=== PATIENT | female | born 1965 | race Caucasian/White ===

== ENCOUNTER → 2016-12-27 | Outpatient (CLI) | payer MEDICARE, OTHER ==
[2015-06-21 10:53] VITALS: BP 146/77
--- NOTE | 2016-12-28 13:54 | PDOC4 ---
PROCEDURE Procedure Polysomnography report Referring physician Dr. Miquel Wade Date of study 12/27/2016 Radha is 51 years old who weighs 293 pounds with a BMI of 30. patient's Loving[place] score was 10. Patient underwent sleep study at [facility] to rule out LETICIA. During the night's study patient spent 419 minutes in bed and slept for 378 minutes with a sleep efficiency of 90%. Sleep latency was 33 minutes with a REM latency of 225 minutes. Overall sleep architecture showed normal stage I sleep, reduced stage II sleep, increased slow-wave sleep which was 61% of the total sleep time and reduced REM sleep. During the night of the study patient had 1 obstructive apnea, no mixed apneas and no central apneas. 28 hypopneas were seen. Patients AHI for the entire night was 5 per hour with a supine AHI of 4 per hour and a REM AHI of 31 per hour. EKG monitoring revealed normal sinus rhythm. Average heart rate was 77 bpm .no arrhythmias were observed. Review of nocturnal oximetry study revealed a mean oxygen saturation of 95% with a lowest of 75%. 7.7% of time oxygen saturation remained less than 89%. This was predominantly seen during REM sleep. No. Periodic limb movements were seen. Impression 1. Mild sleep apnea apnea syndrome with worsening during REM sleep. Total AHI 5 per hour with a REM AHI of 31 per hour. 2. Nocturnal hypoxia which was predominantly seen during REM sleep and related to REM sleep related obstructive sleep apnea 2. No clinically significant periodic limb movements seen. Recommendation 1. Patient has mild sleep apnea which can be treated with multiple options. Oral appliance can be used as recommended by the dentist. Alternate treatment options would include trial of CPAP. 2. If patient undergoes CPAP titration study than she should be followed up in 4 -6 weeks to assess compliance with CPAP and to document clinical improvement. 3. If patient does not undergo CPAP titration study then she would qualify for use of nocturnal oxygen at 1 L. 4. Avoid central nervous system depressants 5. Cautioned regarding driving until patient's sleep apnea is resolved with above recommendations JOSE DE JESUS GALVAN MD Dec 28, 2016 13:54
== END | disposition home or self-care (01) ==
LOC: SLPLAB 20:19
PROVIDERS: ATTEND Physician Assistant Medical
DX: G47.33 Obstructive sleep apnea (adult) (pediatric) (principal)
CPT/HCPCS: 95810

== ENCOUNTER → 2017-07-22 | Outpatient (CLI) | payer MEDICARE, OTHER | END | disposition home or self-care (01) | LOC: KCIC MRI 10:01 | DX: G54.0 Brachial plexus disorders (principal); M41.83 Other forms of scoliosis, cervicothoracic region | CPT/HCPCS: 71550 ==

== ENCOUNTER → 2017-09-09 | Outpatient (CLI) | payer MEDICARE, OTHER ==
[~2017-09-09] MED LIST: GADOBUTROL 7.5 MMOL/7.5 ML VIAL IV
== END | disposition home or self-care (01) ==
LOC: KCIC MRI 11:50
DX: R51 Headache (principal)
CPT/HCPCS: 70551

== ENCOUNTER → 2018-08-01 | Outpatient (CLI) | payer MEDICARE, OTHER ==
[2015-06-21 10:53] VITALS: BP 146/77
[~2018-08-01] MED LIST changes: +ALBU2.5V8 INH; -GADOBUTROL 7.5 MMOL/7.5 ML VIAL IV; +PRED2.5T PO
--- NOTE | 2018-08-01 12:23 | KCIC ---
EXAM: Lumbar spine, 5 views. HISTORY: Pain. COMPARISON: None. FINDINGS: 5 views of the lumbar spine are obtained. There is partial visualization of a fixation james at the thoracic levels. There is associated thoracic scoliosis. There is a transitional lumbosacral segment. This is considered a partially lumbarized S1 segment for this dictation. Based on this numbering system, there is a mild anterior wedge compression fracture of L5. The remainder of the lumbar vertebral bodies are normal in height and the disc spaces are preserved. There is facet arthropathy at the lower lumbar levels. There is bone demineralization, limiting evaluation of bony detail. There are surgical clips within the abdomen. IMPRESSION: 1. Mild L5 compression fracture, of uncertain chronicity. 2. Degenerative changes predominantly at the lumbosacral junction. 3. Thoracic scoliosis with james fixation, partially included on the ngjmo-kz-lugl. 4. Bone demineralization. Electronically signed by: Adri Dunbar MD (08/01/2018 12:20 PM) [email or web address]
--- NOTE | 2018-08-01 12:57 | KCIC ---
EXAM: Bilateral hands and feet, 3 views. HISTORY: Pain. COMPARISON: None. FINDINGS: Bilateral feet: 3 views of both feet are obtained. There is no fracture, dislocation or subluxation. There is mild left hallux valgus. There is a punctate calcification within the medial left foot soft tissues at the level of the first metatarsal phalangeal joint. Bilateral hands: 3 views of both hands are obtained. There is no fracture, dislocation or subluxation. IMPRESSION: 1. No acute osseous finding. 2. Mild left hallux valgus deformity. Electronically signed by: Adri Dunbar MD (08/01/2018 12:54 PM) [id number]
--- NOTE | 2018-08-01 13:37 | KCIC ---
EXAM: Lumbar spine, 5 views. HISTORY: Pain. COMPARISON: None. FINDINGS: 5 views of the lumbar spine are obtained. There is partial visualization of a fixation james at the thoracic levels. There is associated thoracic scoliosis. There is a transitional lumbosacral segment. This is considered a partially lumbarized S1 segment for this dictation. Based on this numbering system, there is a mild anterior wedge compression fracture of L5. The remainder of the lumbar vertebral bodies are normal in height and the disc spaces are preserved. There is facet arthropathy at the lower lumbar levels. There is bone demineralization, limiting evaluation of bony detail. There are surgical clips within the abdomen. IMPRESSION: 1. Mild L5 compression fracture, of uncertain chronicity. 2. Degenerative changes predominantly at the lumbosacral junction. 3. Thoracic scoliosis with james fixation, partially included on the ryopn-zy-dslt. 4. Bone demineralization. Electronically signed by: Adri Dunbar MD (08/01/2018 12:20 PM) [id number] DICTATED and SIGNED BY: ADRI DUNBAR MD DATE: 08/01/18 1217 [facility]
== END | disposition home or self-care (01) ==
LOC: KCIC 11:45
PROVIDERS: ATTEND Physician Assistant Medical
DX: M47.27 Other spondylosis with radiculopathy, lumbosacral region (principal); M80.08XA Age-related osteoporosis with current pathological fracture, vertebra(e), initial encounter for fracture; M20.12 Hallux valgus (acquired), left foot; M41.84 Other forms of scoliosis, thoracic region; M79.642 Pain in left hand; M79.641 Pain in right hand; M79.671 Pain in right foot
CPT/HCPCS: 72100; 72110; 73130; 73630

== ENCOUNTER → 2018-08-24 | Outpatient (CLI) | payer MEDICARE ==
[2015-06-21 10:53] VITALS: BP 146/77
--- NOTE | 2018-08-24 09:43 | CARD ---
MR#: [id number] Date of Study: 08/24/2018 Ordering Physician: JANE LAST, Referring Physician: JANE LAST, Tech: Letitia Miller APPROVED REPORT EXAM: Two-dimensional and M-mode echocardiogram with Doppler and color Doppler. Other Information Quality : GoodHR: 108bpm INDICATION Peripheral Edema 2D DIMENSIONS RVDd2.5 (2.9-3.5cm)Left Atrium(2D)1.8 (1.6-4.0cm) IVSd0.6 (0.7-1.1cm)Aortic Root(2D)2.4 (2.0-3.7cm) LVDd3.1 (3.9-5.9cm)LVOT Diameter1.9 (1.8-2.4cm) PWd0.8 (0.7-1.1cm)LVDs1.7 (2.5-4.0cm) FS (%) 46.4 %SV30.8 ml LVEF(%)79.1 (>50%) Aortic Valve AoV Peak Colby.144.2cm/sAoV VTI18.6cm AO Peak GR.8.3mmHgLVOT Peak Colby.96.6cm/s LVOT VTI 14.32cmAO Mean GR.4mmHg MIKKI (VMAX)1.95gn4SHW (VTI)2.10cm2 Mitral Valve MV E Rolnilgl98.7cm/sMV DECEL YXYE621rg MV A Lownuugh33.6cm/sMV URI95ou E/A Ratio0.7MVA (PHT)4.54cm2 TDI E/Lateral E'6.0E/Medial E'8.2 Pulmonary Valve PV Peak Oggftvxt859.1cm/sPV Peak Grad.5mmHg Pulmonary Vein S1 Iuzkvbvt13.8cm/sD2 Uqnvttbz83.5cm/s PVa [id number] LEFT VENTRICLE The left ventricle is normal size. There is mild concentric left ventricular hypertrophy. The left ve ntricular systolic function is normal and the ejection fraction is within normal range. The Ejection Fraction is >55%. There is normal LV segmental wall motion. Transmitral Doppler flow pattern is Grade I-abnormal relaxation pattern. RIGHT VENTRICLE The right ventricle is normal size. There is normal right ventricular wall thickness. The right ventr icular systolic function is normal. ATRIA The left atrium size is normal. The right atrium size is normal. The interatrial septum is intact wit h no evidence for an atrial septal defect or patent foramen ovale as noted on 2-D or Doppler imaging. AORTIC VALVE The aortic valve is thickened but opens well. Doppler and Color Flow revealed no significant aortic r egurgitation. There is no significant aortic valvular stenosis. MITRAL VALVE The mitral valve is thickened but opens well. There is no evidence of mitral valve prolapse. There is no mitral valve stenosis. Doppler and Color Flow revealed no mitral valve regurgitation noted. TRICUSPID VALVE The tricuspid valve is normal in structure and function. Doppler and Color Flow revealed trace tricus pid regurgitation. There is no tricuspid valve stenosis. PULMONIC VALVE The pulmonic valve is not well visualized. Doppler and Color Flow revealed no pulmonic valvular regur gitation. GREAT VESSELS The aortic root is normal in size. The IVC is normal in size and collapses >50% with inspiration. PERICARDIAL EFFUSION There is no evidence of significant pericardial effusion. Critical Notification Critical Value: No <Conclusion> The left ventricular systolic function is normal and the ejection fraction is within normal range. Th e Ejection Fraction is >55%. There is normal LV segmental wall motion. Signed by : Giacomo Costa, Electronically Approved : 08/24/2018 09:43:05
== END | disposition home or self-care (01) ==
LOC: ECHO 07:41
PROVIDERS: ATTEND Physician Assistant Medical
DX: I51.7 Cardiomegaly (principal); R60.0 Localized edema
CPT/HCPCS: 93306

== ENCOUNTER 2019-01-03 07:25 | Day surgery (SDC) | payer MEDICARE ==
[~2019-01-03] VITALS: Ht 139.7 cm; Wt 35.4 kg
[2019-01-03] MEDS: IV RINGERS,LACTATED 1000ML 1,000 ML IV SCH ×2 (07:00→08:06)
[~2019-01-03 07:25] MED LIST changes: +BUPIVACAINE MPF 0.5% 30 ML VIAL. ONE; +LIDOCAINE 1% 20 ML VIAL. ONE; +ONDANSETRON PF 4 MG/2 ML VIAL. IV PRN; +PROCHLORPERAZINE 10 MG/2 ML VIAL. IV PRN; +fentaNYL PF VIAL 100 MCG/2 ML VIAL IV PRN
[2019-01-03] MEDS ORDERED: ESOM20CA PO (07:55)
[2019-01-03] MEDS ORDERED: SCOPOLAMINE 1.5MG PATCH. TD STA (07:57)
--- NOTE | 2019-01-03 08:48 | DISCH ---
DISCHARGE INSTRUCTIONS Condition on Discharge Condition on Discharge: Stable Activity After Discharge Activity Instructions for Disc: Activity as tolerated Bathing Instructions: Shower-keep dressing dry Lifting Instructions after Dis: No heavy lifting, No pulling or pushing Weight Bearing Status after Di: As tolerated Diet after Discharge Diet after Discharge: Regular Wound Incision Care Wound/Incision Care: Ice to area for comfort, Keep wound/cast CDI, Keep wound elevated, Change dressing Other wound/incision instructi: okay to change dressing after [address] after DC Call your doctor for: Concerns you may have Follow-Up Follow up with: Floridalma in 2 weeks MARIKA SCHREIBER II, MD Jan 03, 2019 08:48
[2019-01-03] MEDS ORDERED: fentaNYL PF VIAL 100 MCG/2 ML VIAL ONE (08:58)
[2019-01-03] MEDS ORDERED: MIDAZOLAM HCL/PF 2 MG/2 ML VIAL. ONE (08:58)
[2019-01-03] MEDS ORDERED: LIDOCAINE 2% PF 5 ML VIAL. ONE ×2 (09:20)
--- NOTE | 2019-01-03 09:47 | PDOC4 ---
Operative Note Operative Note Date of procedure: 01/03/2019 Surgeon: Gene Schreiber Preoperative diagnosis: Left carpal tunnel syndrome Postoperative diagnosis: Same Procedure performed: Open left carpal tunnel release Anesthesia: Fallon block with sedation Findings: Normal-appearing median nerve Blood loss: 2 mL Tourniquet time: 25 minutes Complications: None Reason for procedure: Patient is very pleasant individual has had long-standing carpal tunnel symptoms that have failed conservative therapies. EMG demonstrated the same. Because conservative therapies had failed and the carpal tunnel syndro me was interfering with activities of daily living, we discussed the risks, benefits, alternatives to the above procedure and they wished to proceed. Description of procedure: Patient was greeted in the preoperative area where the patient underwent successful placement of a Fallon block and sedation. The right upper extremity was then prepped and draped in our usual sterile fashion we conducted our standard preoperative timeout. After this, I made a skin incision from the distal wrist crease into the palm over the transverse carpal ligament and incised skin with a scalpel, dissected subcutaneous tissue until I encountered the palmar fascia with a mosquito clamp. Hemostasis was achieved with bipolar cautery. The palmar fascia was incised in line with the skin incision and the self-retaining retractor was then positioned. I then identified the transverse carpal ligament and transected this with the scalpel. I then placed a Ragnell retractor at the distal portion of the incision, spread above and below small remaining portion of the transverse carpal ligament with a tenotomy and then released the remainder of the ligament distally with the tenotomy scissors. I then repeated this maneuver at the proximal portion of the incision and an ulnar directed fashion to release E distal and antebrachial fascia. I then palpated along the median nerve with the tip of the tenotomies to help ensure that accomplished a complete release. The wound was then thoroughly irrigated out with sterile fluid. Skin was then closed with simple interrupted 2-0 nylon. A soft bulky sterile dressing was applied. All counts correct 2 prior to wound closure. Surgery was well tolerated by the patient. The tourniquet was let down and the patient was transferred gently supine to the recovery room cart and taken to PACU in a stable and extubated condition. Postoperative plan is to encourage elevation of the hand and active range of motion at fingers and wrist. I will see the patient back in 2 weeks, sooner should a problem arise. GENE SCHREIBER II, MD Jan 03, 2019 09:47
[2019-01-03] MEDS ORDERED: PROPOFOL 20 ML IV ONE (09:56)
[2019-01-03] MEDS ORDERED: HYDR-3164 PO (09:57)
[2019-01-03] MEDS ORDERED: DOCU-109 PO (09:58)
[2019-01-03] MEDS ORDERED: ONDA8TAB9 PO (09:58)
[2019-01-03 10:15] VITALS: BP 113/65
== END 2019-01-03 10:57 | disposition home or self-care (01) ==
LOC: SURG 07:25
PROVIDERS: ATTEND Orthopaedic Surgery Sports Medicine
DX: G56.02 Carpal tunnel syndrome, left upper limb (principal); J45.909 Unspecified asthma, uncomplicated; K21.9 Gastro-esophageal reflux disease without esophagitis; I10 Essential (primary) hypertension; Z90.710 Acquired absence of both cervix and uterus; Z98.42 Cataract extraction status, left eye; Z98.41 Cataract extraction status, right eye; Z96.1 Presence of intraocular lens
CPT/HCPCS: 64721; J0690; J2001; J2250; J2704; J3010; J3490

== ENCOUNTER → 2019-01-12 | Outpatient (CLI) | payer MEDICARE ==
[2019-01-03 10:15] VITALS: BP 113/65
[~2019-01-12] MED LIST changes: -BUPIVACAINE MPF 0.5% 30 ML VIAL. ONE; +DOCU-109 PO; +ESOM20CA PO; +HYDR-3164 PO; -LIDOCAINE 1% 20 ML VIAL. ONE; +ONDA8TAB9 PO; -ONDANSETRON PF 4 MG/2 ML VIAL. IV PRN; -PROCHLORPERAZINE 10 MG/2 ML VIAL. IV PRN; -fentaNYL PF VIAL 100 MCG/2 ML VIAL IV PRN
--- NOTE | 2019-01-12 15:51 | KCIC ---
Bilateral digital screening mammograms with 3-D tomosynthesis: Reason for examination: Routine screening. Comparison is made to previous studies dated 01/02/2016 and 12/24/2014. Bilateral mammograms in CC and oblique projections were obtained with 2-D imaging and 3-D tomosynthesis imaging on a Siemens Inspiration unit and reviewed on the workstation. Interpretation was made with the benefit of CAD. The skin and nipples show no abnormalities. No abnormal axillary lymph nodes are seen. The breast parenchyma is heterogeneously dense. (Breast density: Category C.) There continues to be some nodular asymmetry in the left breast at the 1:00 B position. There continues to be a small nodule in the 11:00 C position of the left breast which is stable. There also appears be some nodular asymmetry at the 1130 to 12:00 B position of the right breast which has not changed. There are no new dominant masses, suspicious calcifications or architectural distortion. Impression: No evidence of malignancy. Recommend routine screening. Your patient's mammogram demonstrates that she has dense breast tissue (breast density category C or D), which could hide abnormalities, and if she has other risk factors for breast cancer that have been identified, she might benefit from supplemental screening tests that may be suggested by you as her ordering physician. Dense breast tissue, in and of itself, is a relatively common condition. Therefore, this information is not provided to cause undue concern, but rather to raise your awareness and to promote discussion with your patient regarding the presence of other risk factors, in addition to dense breast tissue. Your patient's mammography results will be sent to her. BI-RAD Category 2: Benign. "Our facility is accredited by the [employer] Mammography Program." This patient's information has been entered into a reminder system for the patient to be notified with the results of her examination and a target date for the next mammogram. Electronically signed by: Sarahy Chanel MD (01/12/2019 3:48 PM) [id number]
== END | disposition home or self-care (01) ==
LOC: KCIC MAMMO 14:03
PROVIDERS: ATTEND Family Medicine
DX: Z12.31 Encounter for screening mammogram for malignant neoplasm of breast (principal); N63.22 Unspecified lump in the left breast, upper inner quadrant
CPT/HCPCS: 77063; 77067

== ENCOUNTER → 2019-07-16 | Outpatient (CLI) | payer MEDICARE, MEDICAID ==
--- NOTE | 2019-07-16 10:14 | KCIC ---
EXAM: Chest, 2 views. HISTORY: Bronchitis. COMPARISON: 07/22/2017. FINDINGS: 2 views of the chest are obtained. There is severe thoracic kyphoscoliosis resulting in dextro positioning of the heart over the right hemithorax. This limits evaluation for right lung infiltrate. There is slight blunting of the right costophrenic angle due to basilar pleural thickening or trace pleural fluid. There is a small nodular opacity overlying the right lower lobe likely due to a nipple shadow. There may be right middle lobe infiltrate or scarring. There aren't chronic rib fracture deformities. There is thoracic spine fusion instrumentation. IMPRESSION: 1. Possible right middle lobe infiltrate or scarring and right basilar pleural thickening or trace pleural effusion. 3. Thoracic kyphoscoliosis. Electronically signed by: Adri Dunbar MD (07/16/2019 10:11 AM) [facility] [place]
== END | disposition home or self-care (01) ==
LOC: KCIC 09:51
PROVIDERS: ATTEND Physician Assistant Medical
DX: M41.84 Other forms of scoliosis, thoracic region (principal); J20.9 Acute bronchitis, unspecified
CPT/HCPCS: 71046

== ENCOUNTER → 2020-01-09 | Outpatient (CLI) | payer MEDICAID, MEDICARE ==
--- NOTE | 2020-01-09 16:43 | KCIC ---
Bilateral digital screening mammograms with 3-D tomosynthesis: Reason for examination: Routine screening. Comparison is made to previous studies dated back to 12/24/2014. Bilateral mammograms in CC and oblique projections were obtained with 2-D imaging and 3-D tomosynthesis imaging on a Siemens Inspiration unit and reviewed on the workstation. Interpretation was made with the benefit of CAD. The skin and nipples show no abnormalities. No abnormal axillary lymph nodes are seen. The breast parenchyma shows scattered fatty and fibroglandular density. (Breast density: Category B.) There continues to be a circumscribed nodule at the 11:00 B position of the left breast which is stable. There is suggestion of some increased nodularity at the 1:00 position anteriorly in the left breast. Further evaluation with ultrasound is recommended. There are no other dominant masses, suspicious calcifications or architectural distortion. Impression: New nodularity in the upper outer quadrant of the left breast anteriorly. Recommend further evaluation with ultrasound. BI-RADS Category 0: Incomplete. Needs additional imaging evaluation "Our facility is accredited by the [employer] Mammography Program." This patient's information has been entered into a reminder system for the patient to be notified with the results of her examination and a target date for the next mammogram. Electronically signed by: Sarahy Chanel MD (01/09/2020 4:40 PM) [id number]
== END | disposition home or self-care (01) ==
LOC: KCIC MAMMO 09:56
PROVIDERS: ATTEND Family Medicine
DX: Z12.31 Encounter for screening mammogram for malignant neoplasm of breast (principal); N64.89 Other specified disorders of breast
CPT/HCPCS: 77063; 77067

== ENCOUNTER → 2020-01-29 | Outpatient (CLI) | payer MEDICARE ==
--- NOTE | 2020-01-29 08:36 | KCIC ---
Left breast ultrasound: Reason for examination: Nodularity in the upper outer quadrant anteriorly on screening mammogram. Comparison is made to mammographic exam dated 01/09/2020. Left breast ultrasound including evaluation of the retroareolar and axillary regions of the left breast was performed. There are patchy fibrocystic type changes in the 1:00 position 1 cm from the nipple and to a milder extent at the 2:00 position. No suspicious nodules are seen. No abnormal appearing lymph nodes are seen in the axilla. IMPRESSION: Nodular fibrocystic type changes in the 1:00 and 2:00 positions. No suspicious abnormalities are seen. Recommend 6 month follow-up with ultrasound. BI-RADS Category 3: Probably Benign. "Our facility is accredited by the [employer] Mammography Program." This patient's information has been entered into a reminder system for the patient to be notified with the results of her examination and a target date for the next mammogram. Electronically signed by: Sarahy Chanel MD (01/29/2020 8:32 AM) [id number]
== END | disposition home or self-care (01) ==
LOC: KCIC US 07:46
PROVIDERS: ATTEND Family Medicine
DX: R92.8 Other abnormal and inconclusive findings on diagnostic imaging of breast (principal); N60.02 Solitary cyst of left breast
CPT/HCPCS: 76641

== ENCOUNTER → 2020-08-26 | Outpatient (CLI) | payer MEDICARE ==
--- NOTE | 2020-08-26 10:26 | KCIC ---
EXAM: Bilateral feet, 3 views. HISTORY: Neuropathic pain. COMPARISON: 08/01/2018. FINDINGS: 3 views of both feet are obtained. There is a left hallux valgus deformity. There is no fra cture, dislocation or subluxation. No foreign body is seen. IMPRESSION: 1. Left hallux valgus. 2. No acute osseous finding. Electronically signed by: Adri Dunbar MD (08/26/2020 10:23 AM) [id number]
== END ==
LOC: KCIC 09:57
PROVIDERS: ATTEND Physician Assistant Medical
DX: M20.12 Hallux valgus (acquired), left foot (principal); G57.93 Unspecified mononeuropathy of bilateral lower limbs
CPT/HCPCS: 73630-50

== ENCOUNTER → 2020-09-11 | Outpatient (CLI) | payer MEDICARE ==
--- NOTE | 2020-09-11 15:41 | KCIC ---
US DPLX ARTR EXTREM LOWER BILAT Indication: Reason: Claudication of both legs / Spl. Instructions: / History: Comparison: None. Procedure: Real-time grayscale, color flow Doppler, and Doppler spectral waveform analysis of the art erial system of the lower extremity is performed. Findings: Triphasic or biphasic waveforms are present in the bilateral common femoral artery, superficial femor al artery, popliteal artery, anterior tibial artery, posterior tibial artery and dorsalis pedis arter y. No significant velocity elevation to suggest stenosis. IMPRESSION: 1. No hemodynamically significant arterial stenosis. Electronically signed by: Teo Brand DO (09/11/2020 3:39 PM) [id number]
== END ==
LOC: KCIC US 08:39
PROVIDERS: ATTEND Physician Assistant Medical
DX: I73.9 Peripheral vascular disease, unspecified (principal)
CPT/HCPCS: 93925

== ENCOUNTER → 2020-12-25 | Outpatient (CLI) | payer MEDICAID, MEDICARE ==
--- NOTE | 2020-12-25 10:46 | KCIC ---
Bilateral diagnostic digital mammograms with 3-D tomosynthesis: Reason for examination: Bloody right nipple discharge. Bilateral inferior lateral breast pain for 2 m onths. Comparison is made to previous studies dated back to 12/24/2014. Bilateral mammograms in CC and oblique projections were obtained with 2-D imaging and 3-D tomosynthes is imaging on a Siemens Inspiration unit and reviewed on the workstation. Interpretation was made wit h the benefit of CAD. The skin and nipples show no abnormalities. No abnormal axillary lymph nodes are seen. The breast par enchyma is heterogeneously dense. (Breast density: Category C.) There appears to be a small 6 mm nodu lar density at approximately the 11:30 position of the right breast 7 cm deep to the nipple. There co ntinues to be a small circumscribed nodule with calcification at the 10:00 C position of the left gabriela ast which is stable. There is also some nodularity at the 12:00 B position of the left breast. There are no other dominant masses, suspicious calcifications or architectural distortion. Impression: Small 6 mm nodular density at the 11:30 position of the right breast approximately 7 cm deep to the n ipple. Nodularity at the 12:00 B position of the left breast. Ultrasound to follow. Your patient's mammogram demonstrates that she has dense breast tissue (breast density category C or D), which could hide abnormalities, and if she has other risk factors for breast cancer that have bee n identified, she might benefit from supplemental screening tests that may be suggested by you as her ordering physician. Dense breast tissue, in and of itself, is a relatively common condition. Therefo re, this information is not provided to cause undue concern, but rather to raise your awareness and t o promote discussion with your patient regarding the presence of other risk factors, in addition to d ense breast tissue. Your patient's mammography results will be sent to her. BI-RAD Category 0: Incomplete. Needs additional imaging evaluation. Bilateral breast ultrasound: Ultrasound examination of the breasts and axilla was performed bilaterally. In the right breast at the 11:30 position 5 cm from the nipple, there is a 6.1 x 5.6 mm hypoechoic wi th irregular margination. This would correspond with the area of mammographic concern and further kandi luation with ultrasound-guided biopsy is recommended. No other cystic or solid nodules are seen. No a bnormal appearing right axilla. In the left breast at the 12:00 position 3 cm from the nipple, there is an elongated 1.5 cm hypoechoi c fibrocystic type nodule with no abnormal vascularity. No abnormal appearing lymph nodes are seen in left axilla. IMPRESSION: 6.1 mm nodule at the 11:30 position of the right breast 5 cm from the nipple. Further evaluation with ultrasound-guided biopsy is recommended. Elongated 1.5 cm fibrocystic type lesion at the 12:00 position of the left breast. Recommend 6 month follow-up with ultrasound. BI-RADS Category 4: Suspicious. These findings were discussed with the patient and Dr. Miquel Wade's nurse, Vika, was notified a bout these findings on 12/25/2020 at 10:44 AM. "Our facility is accredited by the [employer] Mammography Program." This patient's information has been entered into a reminder system for the patient to be notified wit h the results of her examination and a target date for the next mammogram. Electronically signed by: Sarahy Chanel MD (12/25/2020 10:44 AM) [id number]
== END ==
LOC: KCIC MAMMO 07:51
PROVIDERS: ATTEND Family Medicine
DX: N63.11 Unspecified lump in the right breast, upper outer quadrant (principal); N63.22 Unspecified lump in the left breast, upper inner quadrant; N60.02 Solitary cyst of left breast
CPT/HCPCS: 76641; 77066; G0279; 77062

== ENCOUNTER → 2021-01-01 | Outpatient (CLI) | payer MEDICARE ==
--- NOTE | 2021-01-01 10:09 | RAD ---
EXAM: Ultrasound-guided core biopsy right breast; unilateral postbiopsy mammogram. CLINICAL HISTORY: Right breast mass TECHNIQUE AND FINDINGS: Risks, benefits, treatment options, and potential complications were discussed with the patient. Cons ent was obtained and the patient indicated willingness to proceed. A time out was performed immediate ly prior to the procedure to correctly identify the patient, side, site, and type of procedure to be performed. The patient was placed supine on the ultrasound table. Sonographic guidance was used to target the le earle(s) of concern in the right breast. The overlying skin was marked, prepped, and draped in usual s terile fashion. Local anesthesia was administered using 1% lidocaine. Under imaging guidance, a 14-gauge core biopsy device was advanced to the margin of the lesion(s) and 4 core samples were obtained. After each biopsy sample was obtained, the mass became increasingly mo re difficult to visualize until it could no longer be reliably identified following the fourth biopsy sample so the procedure was ended. Biopsy samples were placed in formalin and sent to pathology for histopathologic analysis. A biopsy marker clip was then advanced to the expected site of biopsy utili abding the same guidance technique. Good hemostasis was achieved with light manual compression and ster ile dressing was applied. The patient was then transferred to the mammography suite for craniocaudal and mediolateral oblique views. Postbiopsy mammogram demonstrates immediate postbiopsy changes and a biopsy marker clip located 1 cm from the mass in a slightly anteromedial and inferior direction. The patient tolerated the procedure without difficulty and was discharged to home in stable condition with postbiopsy care instructions. IMPRESSION: Successful ultrasound-guided biopsy of right breast mass and postbiopsy clip placement. Pathology is pending. Please refer to the separate report submitted by the Department of Pathology for specimen fi ndings. Electronically signed by: Froilan Oro DO (01/01/2021 10:06 AM) [id number]
--- NOTE | 2021-01-02 18:06 | PATHOLOGY ---
[facility] Accession Number: [id number] . 01 Material submitted: . breast - RIGHT BREAST MASS 11:30 5CM FN 6.1MM. Modifiers: right, 11:30, 5CM FN . 01 Clinical history: . OBTAINED: 0845 FORMALIN: 0845 MASS RIGHT BREAST . 02 Diagnosis: Breast tissue, right breast mass 11:30 5 cm from nipple needle biopsies: - Stromal fibrosis, focal. See comment. (JPM:microbiology instructor; 01/02/2021) MBR 01/02/2021 1615 Local . 02 Comment: Sections of the right breast mass 11:30 needle biopsy reveal several segments of breast tissue. One of the segments shows a somewhat confluent ill-defined nodular area of stromal fibrosis containing a few benign ducts. The remaining breast fragments are fatty and contain a few benign ducts. There is no atypia or evidence of malignancy. (JPM:microbiology instructor; 01/02/2021) . 02 Electronically signed: . Drew Pierre MD, Pathologist NPI- [id number] . 01 Gross description: . Received in formalin labeled "Kolojaco, Radha and right breast". Received are multiple white-yellow hemorrhagic breast tissue core fragments ranging from 0.2-0.3 cm in length and 0.1 cm in diameter. The specimen is entirely submitted in cassette A1. The specimen was removed on 01/01/2021 at 0845 hours and placed into formalin at 0845 hours. The specimen will be removed from formalin on 01/01/2021 at 2340 hrs. The specimen will be in formalin more than 6 hours and less than 72 hours.(BLJ; 01/01/2021) BLJ/BLJ 01/02/2021 1613 Local . 02 Pathologist provided ICD-10: N60.31 . 02 CPT . 336651 Specimen Comment: A courtesy copy of this report has been sent to [phone], [phone] Specimen Comment: [id number], Specimen Comment: Report sent to ,DR LAST,DR ALCARAZ / DR SANTILLAN Performed at: [address] [facility], [place] [id number] MD Luisito Daniels MD Phone: [phone] [facility]formed [facility]: [facility] [address] [place], [place] [id number] MD Drew Pierre MD Phone: [phone]
== END | disposition home or self-care (01) ==
LOC: US 07:29
PROVIDERS: ATTEND Physician Assistant Medical
DX: N63.11 Unspecified lump in the right breast, upper outer quadrant (principal); R92.8 Other abnormal and inconclusive findings on diagnostic imaging of breast; I10 Essential (primary) hypertension; J45.909 Unspecified asthma, uncomplicated; K21.9 Gastro-esophageal reflux disease without esophagitis; F41.9 Anxiety disorder, unspecified; F32.9 Major depressive disorder, single episode, unspecified; G47.30 Sleep apnea, unspecified; Z90.710 Acquired absence of both cervix and uterus; Z98.890 Other specified postprocedural states; Z79.899 Other long term (current) drug therapy; Z88.5 Allergy status to narcotic agent; Z88.8 Allergy status to other drugs, medicaments and biological substances
CPT/HCPCS: 19083; 77065; A4648

== ENCOUNTER → 2021-10-29 | Outpatient (CLI) | payer MEDICARE ==
--- NOTE | 2021-10-29 09:23 | RAD ---
EXAM: Abdomen sonogram. HISTORY: Bloating. Pain. TECHNIQUE: Sonographic imaging of the abdomen was performed. COMPARISON: None. FINDINGS: The liver is normal in size. No focal hepatic lesion is seen. The gallbladder is surgically absent. The common bile duct is normal in caliber. The kidneys and spleen are unremarkable. The aort a is normal in caliber. The inferior vena cava is patent. The pancreas is obscured due to bowel gas. There is no ascites. IMPRESSION: 1. No acute sonographic finding. 2. Cholecystectomy. Electronically signed by: Adri Dunbar MD (10/29/2021 9:19 AM) [id number]
== END ==
LOC: US 07:49
PROVIDERS: ATTEND Physician Assistant Medical
DX: R14.0 Abdominal distension (gaseous) (principal); Z90.49 Acquired absence of other specified parts of digestive tract
CPT/HCPCS: 76700